=== PATIENT | male | born 1930 | race Caucasian/White ===

== ENCOUNTER 2018-05-13 11:59 | Emergency (ER) | payer OTHER ==
[~2018-05-13] VITALS: Ht 177.8 cm; Wt 102.1 kg
[2018-05-13 12:10] VITALS: BP 138/75
[2018-05-13] MEDS ORDERED: KEFLEX500 M1 PO (12:47)
== END 2018-05-13 12:55 | disposition home or self-care (01) ==
LOC: M.ERS 11:59
DX: S62.667A Nondisplaced fracture of distal phalanx of left little finger, initial encounter for closed fracture (principal); S61.217A Laceration without foreign body of left little finger without damage to nail, initial encounter; Z88.0 Allergy status to penicillin; Z88.6 Allergy status to analgesic agent; Z88.2 Allergy status to sulfonamides; W23.0XXA Caught, crushed, jammed, or pinched between moving objects, initial encounter; Y93.89 Activity, other specified; Y92.89 Other specified places as the place of occurrence of the external cause; Y99.8 Other external cause status

== ENCOUNTER 2018-06-07 15:00 | Emergency (ER) | payer OTHER ==
[~2018-06-07] VITALS: Ht 188 cm; Wt 104.3 kg
[~2018-06-07 15:00] MED LIST: KEFLEX500 M1 PO
[2018-06-07] MEDS ORDERED: MOBIC7.5 MG PO (15:12)
[2018-06-07] MEDS ORDERED: TOPROL XL25 MG PO (15:13)
[2018-06-07] MEDS ORDERED: TESSALON PERLE100 MG PO (15:38)
[2018-06-07] MEDS ORDERED: KEFLEX500 M1 PO (16:50)
[2018-06-07 17:18] VITALS: BP 133/64
== END 2018-06-07 17:18 | disposition home or self-care (01) ==
LOC: M.ERS 15:00
DX: R05 Cough (principal); K04.7 Periapical abscess without sinus; Z88.0 Allergy status to penicillin; Z88.2 Allergy status to sulfonamides; Z88.6 Allergy status to analgesic agent; Z96.659 Presence of unspecified artificial knee joint; Z96.649 Presence of unspecified artificial hip joint